=== PATIENT | male | born 1975 | race Caucasian/White ===

== ENCOUNTER 2023-03-29 22:53 | Emergency (ER) | payer OTHER, SELFPAY ==
[2023-03-29 23:00] VITALS: BP 147/102; PULSE 104; RESP 17; TEMP 37.1; O2SAT 99; BMI 35.9
--- NOTE | 2023-03-29 23:07 | PC.NURSE ---
Pt has small abrasion to left ring finger. Bleeding controlled.
--- NOTE | 2023-03-29 23:14 | XR_ITS ---
The [address] [address] Patient Name: LIMA MCNULTY MRN: [id number] date: 1975 Sex: M Assigned Patient Location: ER Current Patient Location: ER Accession/Order Number: [id number] Exam Date: 03/29/2023 23:25 Report Date: 03/29/2023 23:57 At the request of: AP MARKER Procedure: XR finger LT min 2V EXAM: XR finger LT min 2V HISTORY: The patient is a 47-year-old male, left 4th finger injury COMPARISON: None. FINDINGS: The PA view demonstrates what appears to be an incomplete longitudinal lucency through the ulnar side of the distal tuft of the ring finger distal phalanx. This appears to be an old healed fracture deformity rather than an acute fracture, and this should be correlated with a history of remote trauma to this distal phalanx. No other definite fractures or cortical discontinuities are seen within the phalanges of the ring finger. The widths and alignment of all the joints are maintained. XR/XR finger LT min 2V IMPRESSION: As above. Electronically authenticated by: SUSAN ARANA Date: 03/29/2023 23:57
--- NOTE | 2023-03-29 23:37 | ED.UPPEXIN1 ---
HPI - Extremity Injury (Upper) General Chief Complaint: Extremity Injury, Upper Stated Complaint: Upper Injury Time Seen by Provider: 03/29/23 23:09 Source: patient Mode of arrival: walk-in History of Present Illness HPI narrative: This 47-year-old male who is right-hand dominant presents for evaluation of an injury to his left ring finger. The patient states he got his finger pinched between 2 pieces of equipment at work. He was wearing gloves at the time. He has a small avulsion of the skin at the medial proximal nail bed on the left 4th finger. No active bleeding noted. He is able to bend at the MCP, PIP and DIP joints. There is no subungual hematoma. He denies the need for a tetanus shot. Related Data Home Medications Medication Instructions Recorded Confirmed atorvastatin 10 mg tablet mg 03/29/23 empagliflozin 10 mg tablet mg 03/29/23 (Jardiance) insulin detemir U-100 100 unit/mL 35 unit subcut .at bedtime 03/29/23 03/29/23 (3 mL) subcutaneous pen (Levemir FlexPen) lisinopril 5 mg tablet mg 03/29/23 metformin 1,000 mg tablet mg 03/29/23 Allergies Allergy/AdvReac Type Severity Reaction Status Date / Time No Known Drug Allergies Allergy Verified 03/29/23 23:06 [facility] Social History Smoking status: Current every day smoker Exam Narrative Exam Narrative: Nurses note and vital signs reviewed and patient is not hypoxic.Blood pressure is notably elevated at 147/102 and pulse is elevated at 104 General: The patient appears well and in no apparent distress. Patient is resting comfortably on cart. Skin: Warm, dry, no pallor noted. There is no rash noted. Head: Normocephalic, atraumatic Eye: Normal conjunctiva, no drainage, EOMI. PERRL Cardiovascular: Regular Rate and Rhythm, pulse is 90 and regular on exam Respiratory: Patient is in no distress, no accessory muscle use, lungs are clear to auscultation, no wheezing, rales or rhonchi Back: non-tender, no CVA tenderness bilaterally to percussion. Musculoskeletal: 0.5cm area of skin avulsion to left medial proximal nail, does not involve the nailbed, no active bleeding, FROM at MCP, PIP and DIP joint Neurological: A&O x4, normal speech Psychiatric: Cooperative Constitutional Vital Signs, click to edit/add: Last Vital Signs Temp 98.7 F 03/29/23 23:00 Pulse 104 H 03/29/23 23:00 Resp 17 03/29/23 23:00 BP 147/102 H 03/29/23 23:00 Pulse Ox 99 03/29/23 23:00 O2 Del Method Room Air 03/29/23 23:00 Course Vital Signs Vital signs: Vital Signs Temperature 98.7 F 03/29/23 23:00 Pulse Rate 104 H 03/29/23 23:00 Respiratory Rate 17 03/29/23 23:00 Blood Pressure 147/102 H 03/29/23 23:00 Pulse Oximetry 99 03/29/23 23:00 Oxygen Delivery Method Room Air 03/29/23 23:00 Temperature 98.7 F 03/29/23 23:00 Pulse Rate 104 H 03/29/23 23:00 Respiratory Rate 17 03/29/23 23:00 Blood Pressure 147/102 H 03/29/23 23:00 Pulse Oximetry 99 03/29/23 23:00 Oxygen Delivery Method Room Air 03/29/23 23:00 MDM - Extremity Injury (Upper) MDM Narrative Medical decision making narrative: This 47-year-old male presents for evaluation of a crush injury with small avulsion to the and on the medial side of the left fingernail. Does not involve the nailbed. There is no active bleeding. There is normal capillary refill and range of motion at the MCP, DIP and PIP joints. The hand was soaked in warm Betadine solution and an x-ray of the extremity was ordered that shows no fracture or dislocation, but possibly an old healed fracture. He states that he hasnt had an injury to this finger that he can recall in the past, He was given a copy of the xray results. Bacitracin dressing was placed by the nursing staff. The patient will be returned to work. Medical Records Medical records narrative: The [address] [address] XRay Report Signed Patient: LIMA MCNULTY MR#: [id number] : 1975 Acct:[id number] Age/Sex: 47 / M ADM Date: 03/29/23 Loc: ER Attending Dr: Ordering Physician: Ap Don Date of Service: 03/29/23 Procedure(s): XR finger LT min 2V Accession Number(s): [id number] cc: Ap Marker; GELA CHENG ~ The [place] [id number] Patient Name: LIMA MCNULTY MRN: [id number] date: 1975 Sex: M Assigned Patient Location: ER Current Patient Location: ER Accession/Order Number: [id number] Exam Date: 03/29/2023 23:25 Report Date: 03/29/2023 23:57 At the request of: AP MARKER Procedure: XR finger LT min 2V EXAM: XR finger LT min 2V HISTORY: The patient is a 47-year-old male, left 4th finger injury COMPARISON: None. FINDINGS: The PA view demonstrates what appears to be an incomplete longitudinal lucency through the ulnar side of the distal tuft of the ring finger distal phalanx. This appears to be an old healed fracture deformity rather than an acute fracture, and this should be correlated with a history of remote trauma to this distal phalanx. No other definite fractures or cortical discontinuities are seen within the phalanges of the ring finger. The widths and alignment of all the joints are maintained. Discharge Plan Discharge Chief Complaint: Extremity Injury, Upper Clinical Impression: Crushing injury of distal finger, Abrasion of finger of left hand Time of Disposition Decision: 00:23 Condition: Good Prescriptions / Home Meds: No Action Levemir FlexPen 100 unit/mL (3 mL) insulin pen 35 unit subcut .at bedtime atorvastatin 10 mg tablet metformin 1,000 mg tablet lisinopril 5 mg tablet Jardiance 10 mg tablet Instructions: Abrasion (ED), Crush Injury (ED) Additional Instructions: Soak your hand in warm Epsom salt water 2-3 times a day. Keep covered with a sterile bacitracin dressing. Return to emergency department for redness, drainage, red streaks up your arm or any concerns. Follow up with [facility] as needed. Stand Alone Forms: Portal Instructions Referrals: GELA CHENG [Primary Care Provider] - 1 week
[2023-03-30] MEDS: BACITRACIN 0.9 GM PACKET 1 PACKET TOPICAL (00:31)
[2023-03-30 00:43] VITALS: BP 138/99; PULSE 78; RESP 18; O2SAT 98
== END 2023-03-30 00:45 | disposition home or self-care (01) ==
PROVIDERS: Emergency Provider Emergency Medicine; PCP Family Medicine
DX: S67.195A Crushing injury of left ring finger, initial encounter (principal); S61.305A Unspecified open wound of left ring finger with damage to nail, initial encounter; W23.0XXA Caught, crushed, jammed, or pinched between moving objects, initial encounter
CPT/HCPCS: 73140; 99283